=== PATIENT | male | born 1955 | race Caucasian/White ===

== ENCOUNTER 2019-01-14 17:28 | Emergency (ER) | payer MEDICAID ==
[~2019-01-14] VITALS: Ht 172.7 cm; Wt 93.0 kg
--- NOTE | 2019-01-14 17:28 | NUR ---
Patient BIBA BLS, transferred to bed 9. RN evaluating patient at bedside.
[2019-01-14 17:33] VITALS: BP 189/110
--- NOTE | 2019-01-14 17:53 | NUR ---
PATIENT PRESENTS TO ED WITH AUDITORY HALLUCINATIONS. PT STATES THAT THE HE IS AFRAID FOR HIS LIFE AND THE VOICES TELL HIM THAT HE IS A BAD PERSON. DENIES N/V/D; SKIN IS PINK/WARM/DRY; AAOX4 WITH EVEN AND STEADY GAIT. PT DENIES ANY FEVER, CP, SOB, OR COUGH AT THIS TIME; PATIENT STATES PAIN OF 0/10 AT THIS TIME; VSS; PATIENT POSITIONED FOR COMFORT; HOB ELEVATED; BEDRAILS UP X2; BED DOWN. ER TO SEE PT. Addendum: 01/14/19 at 1758 by ELISA PT ADMITS TO METH AND ETHOL USE TODAY.
--- NOTE | 2019-01-14 18:05 | NUR ---
ER AT BEDSIDE
--- NOTE | 2019-01-14 18:06 | NUR ---
PT DENIES SI AT THIS TIME
[2019-01-14] MEDS ORDERED: OLANZapine 5 MG TAB PO SCH (18:10)
--- NOTE | 2019-01-14 18:21 | NUR ---
PT HYPERTENSIVE AT 207/143, REPORTS BLURRY VISSION AND NAUSEA AT THIS TIME ALONG WITH DIAPHORESIS. ER MD NOTIFIED. PT DENIES CP OR SOB.
[2019-01-14] MEDS ORDERED: LORazepam 1 MG TAB PO ONE (18:40)
[2019-01-14] MEDS ORDERED: ONDANSETRON 4 MG ODT PO ONE (18:40)
--- NOTE | 2019-01-14 19:19 | NUR ---
PT STATES HE FEELS BETTER. PT VITALS STABLE FOR DISCHARGE PER ERMD.
[2019-01-14 19:20] VITALS: BP 207/143
--- NOTE | 2019-01-14 19:20 | NUR ---
Patient discharged with v/s stable. Written and verbal after care instructions given and explained. Patient verbalized understanding. Ambulatory with steady gait. All questions addressed prior to discharge. Advised to follow up with PMD.
== END 2019-01-14 19:20 | disposition home or self-care (01) ==
LOC: MED 17:28
DX: F20.9 Schizophrenia, unspecified (principal); F15.10 Other stimulant abuse, uncomplicated; F14.10 Cocaine abuse, uncomplicated; I10 Essential (primary) hypertension; Z98.890 Other specified postprocedural states
CPT/HCPCS: 82948; 99284; Q0162